=== PATIENT | female | born 1975 | race American Indian/Alaskan Native ===

== ENCOUNTER 2021-12-13 14:40 | Inpatient (IN) | payer SELFPAY ==
[2021-12-13 18:08] LABS: Calcium 9.3 mg/dL (8.4-10.2)
--- NOTE | 2021-12-13 18:08 | XRay Report ---
CHEST 2 VIEWS INDICATION: sob. COMPARISON: 02/13/2011. FINDINGS: Support devices: None. Heart: Borderline heart size. Lungs/Pleura: No acute air space or interstitial disease. No significant pleural effusion. IMPRESSION: No acute findings. Signer Name: Tien Chapin MD Signed: 12/13/2021 6:04 PM Workstation Name: [email or web address]
[2021-12-13 18:11] LABS: Hematocrit 33.4 % (30.3-42.9); Hemoglobin 10.2 gm/dl (10.1-14.3); Mean Corpuscular HGB Conc 30 % (30-34); Mean Corpuscular Volume 71 fl (79-97); Platelet Count 292 K/mm3 (140-440); Red Blood Count 4.69 M/mm3 (3.65-5.03); Red Cell Distribution Width 17.3 % (13.2-15.2)
[2021-12-13 18:58] LABS: Chol/HDL Ratio 3.48 %
[2021-12-13 19:52] LABS: Anisocytosis 2+; Basophils % (Manual) 0 % (0.0-1.8); Eosinophils % (Manual) 0 % (0.0-4.3); Hypochromasia 2+; Platelet Estimate Consistent w Auto; Total Cells Counted 100
--- NOTE | 2021-12-14 11:44 | Emergency Department Report ---
ED Shortness of Breath HPI - General Chief Complaint: Dyspnea/Respdistress Stated Complaint: ABDELRAHMAN Time Seen by Provider: 12/14/21 11:08 Source: patient, EMS Mode of arrival: Stretcher Limitations: No Limitations - History of Present Illness Initial Comments: Patient is a 46-year-old female with history of CHF, borderline diabetes and hypertension who presented yesterday with complaint of shortness of breath. States she waited in the waiting room for several hours. Symptoms improved while waiting. States this morning her symptoms are currently resolved. Labs drawn yesterday reviewed and reveal elevated troponin x2. - Related Data Allergies Allergy/AdvReac Type Severity Reaction Status Date / Time cephalexin [From Keflex] AdvReac Unknown Verified 12/13/21 14:45 Penicillins AdvReac Unknown Verified 12/13/21 14:45 ED Review of Systems ROS: Stated complaint: ABDELRAHMAN Other details as noted in HPI Constitutional: denies: chills, fever Respiratory: shortness of breath Cardiovascular: denies: chest pain, palpitations Gastrointestinal: denies: abdominal pain, nausea, diarrhea Genitourinary: denies: urgency, dysuria, discharge Musculoskeletal: denies: back pain, joint swelling, arthralgia Skin: denies: rash, lesions Neurological: denies: headache, weakness, paresthesias Psychiatric: denies: anxiety, depression ED Past Medical Hx - Past Medical History Previous Medical History?: Yes Hx Hypertension: Yes Hx Congestive Heart Failure: Yes Hx Diabetes: Yes Hx Arthritis: Yes Hx Asthma: Yes Additional medical history: thyroid - Surgical History Past Surgical History?: Yes Additional Surgical History: tubiligation 2004. thyroidectomy - Social History Smoking Status: Current Every Day Smoker Substance Use Type: None ED Physical Exam - General Limitations: No Limitations General appearance: alert, in no apparent distress - Head Head exam: Present: atraumatic, normocephalic - Respiratory Respiratory exam: Present: normal lung sounds bilaterally. Absent: respiratory distress - Cardiovascular Cardiovascular Exam: Present: regular rate, normal rhythm, normal heart sounds - GI/Abdominal GI/Abdominal exam: Present: soft. Absent: distended, tenderness - Rectal Rectal exam: Present: deferred - Neurological Exam Neurological exam: Present: alert, oriented X3 - Psychiatric Psychiatric exam: Present: normal affect, normal mood - Skin Skin exam: Present: warm, dry, intact, normal color ED Course Vital Signs 12/13/21 12/14/21 12/14/21 14:41 10:59 11:00 Temperature 100.2 F H Pulse Rate 99 H 82 82 Respiratory 18 16 21 Rate Blood Pressure 178/103 Blood Pressure 145/90 [Left] O2 Sat by Pulse 97 99 100 Oximetry 12/14/21 12/14/21 12/14/21 11:02 11:06 11:15 Temperature 97.9 F Pulse Rate 79 81 81 Respiratory 20 17 Rate Blood Pressure 178/106 178/106 Blood Pressure [Left] O2 Sat by Pulse 98 100 Oximetry 12/14/21 12/14/21 12/14/21 11:31 11:38 11:45 Temperature Pulse Rate 81 90 Respiratory 18 18 18 Rate Blood Pressure 162/86 162/86 Blood Pressure [Left] O2 Sat by Pulse 100 99 100 Oximetry ED Medical Decision Making - Lab Data Result diagrams: 12/13/21 17:24 12/13/21 17:24 - EKG Data -: EKG Interpreted by Co EKG shows normal: sinus rhythm, axis, intervals, QRS complexes Rate: normal - EKG Data 12/14/21 11:43 T wave inversion in aVL - Radiology Data Radiology results: report reviewed No acute findings on chest x-ray. - Medical Decision Making Cardiology consulted. We will plan for echocardiogram during admission along with stress test in the morning. Will admit to hospitalist. Critical care attestation.: If time is entered above; I have spent that time in minutes in the direct care of this critically ill patient, excluding procedure time. ED Disposition Clinical Impression: Elevated troponin Disposition: ADMITTED INPATIENT Is pt being admited?: Yes Condition: Stable
[2021-12-14] MEDS: METOPROLOL TARTRATE 50 MG TAB PO SCH ×2 (13:08→21:30)
[2021-12-14] MEDS: FUROSEMIDE 40 MG/4 ML INJ IV SCH ×2 (13:08→21:30)
[2021-12-14] MEDS: ASPIRIN 81 MG TAB CHEW PO SCH (13:08)
[2021-12-14] MEDS: LISINOPRIL 20 MG TAB PO SCH (13:09)
--- NOTE | 2021-12-14 13:42 | Consultation ---
History of Present Illness Consult date: 12/14/21 Requesting physician: MARIETTA KNOX Consult reason: elevated troponin History of present illness: Patient is a 46-year-old female with a past medical history of CHF, hypertension, diabetes, 20-year smoker who patient reports stopped 1 month ago, PTSD, and MDD who came to the ED yesterday due to a complaint of chills, dizziness, chest pressure which started while yesterday at work. Patient reports that she has been waiting in the ED for 21 hours. At time of interview patient reported that most of her symptoms have resolved. She states she still has some chest tightness that is worsened with deep breathing and palpation. Patient also reports that over the last several weeks she has had bilateral lower extremity edema, slight dyspnea on exertion, and some orthopnea. Of note patient reports that she was diagnosed with a history of CHF at least 2 years ago however states she never followed up with anybody and states she has an appointment at [facility] in December. Patient also reports that she has not been on any cardiac meds and states that she was just recently started on lisinopril but is unaware of her dosage. In the ED patient was found to have elevated BNP, elevated troponin, and BP 178/106. Currently patient is denying squeezing or crushing chest pain, nausea, vomiting, diaphoresis. Patient is previously unknown to our practice. Patient reports that he was planning to see [facility] cardiology in December. Cardiology is consulted for elevated troponins. Past History Past Medical History: diabetes, heart failure, hypertension, hyperlipidemia Past Surgical History: thyroidectomy, Other (Tubal ligation) Social history: smoking (20-year smoker patient reports stopping 1 month) Family history: diabetes Medications and Allergies Allergies Allergy/AdvReac Type Severity Reaction Status Date / Time cephalexin [From Keflex] AdvReac Unknown Verified 12/13/21 14:45 Penicillins AdvReac Unknown Verified 12/13/21 14:45 Active Meds: Active Medications Aspirin (Aspirin 81 Mg Tab Chew) 81 mg PO DAILY [facility] Last Admin: 12/14/21 13:08 Dose: 81 mg Atorvastatin Calcium (Atorvastatin 40 Mg Tab) 40 mg PO QHS [facility] Furosemide (Furosemide 40 Mg/4 Ml Inj) 40 mg IV BID [facility]O Stop: 12/14/21 22:01 Last Admin: 12/14/21 13:08 Dose: 40 mg Lisinopril (Lisinopril 20 Mg Tab) 40 mg PO DAILY [facility] Last Admin: 12/14/21 13:09 Dose: 40 mg Metoprolol Tartrate (Metoprolol Tartrate 50 Mg Tab) 25 mg PO BID [facility] Last Admin: 12/14/21 13:08 Dose: 25 mg Review of Systems Constitutional: chills, no weight loss, no weight gain Cardiovascular: orthopnea, edema, lightheadedness, shortness of breath, dyspnea on exertion Respiratory: shortness of breath, dyspnea on exertion Gastrointestinal: no abdominal pain, no nausea, no vomiting Musculoskeletal: no neck stiffness, no neck pain Integumentary: no rash, no pruritis, no redness Neurological: no head injury, no transient paralysis Psychiatric: no anxiety, no memory loss Endocrine: no cold intolerance, no heat intolerance Hematologic/Lymphatic: no easy bruising, no easy bleeding Physical Examination Vital Signs Temp Pulse Resp BP Pulse Ox 100.2 F H 99 H 18 145/90 97 12/13/21 14:41 12/13/21 14:41 12/13/21 14:41 12/13/21 14:41 12/13/21 14:41 General appearance: no acute distress Cardiac: Positive: Reg Rate and Rhythm Lungs: Positive: Rales Neuro: Positive: Grossly Intact Abdomen: Positive: Soft, Active Bowel Sounds Skin: Negative: Rash, Suspicious Lesions, Ulceration Extremities: Present: upper extr. pulses, edema Results 12/13/21 17:24 12/13/21 17:24 Cardiac Enzymes 12/13/21 Range/Units 17:24 AST 29 (5-40) units/L Lipids 12/13/21 Range/Units 17:24 Triglycerides 98 (2-149) mg/dL Cholesterol 202 H (50-199) mg/dL HDL Cholesterol 58 (40-59) mg/dL Cholesterol/HDL Ratio 3.48 % CBC 12/13/21 Range/Units 17:24 WBC 6.9 (4.5-11.0) K/mm3 RBC 4.69 (3.65-5.03) M/mm3 Hgb 10.2 (10.1-14.3) gm/dl Hct 33.4 (30.3-42.9) % Plt Count 292 (140-440) K/mm3 Comprehensive Metabolic Panel 12/13/21 Range/Units 17:24 Sodium 142 (137-145) mmol/L Potassium 3.7 (3.6-5.0) mmol/L Chloride 102.7 (98-107) mmol/L Carbon Dioxide 26 (22-30) mmol/L BUN 17 (7-17) mg/dL Creatinine 1.3 H (0.6-1.2) mg/dL Glucose 131 H (65-100) mg/dL Calcium 9.3 (8.4-10.2) mg/dL AST 29 (5-40) units/L ALT 20 (7-56) units/L Alkaline Phosphatase 112 (35-129) units/L Total Protein 7.8 (6.3-8.2) g/dL Albumin 4.0 (3.9-5) g/dL - Imaging and Cardiology Echo: pending EKG interpretations - Telemetry EKG Rhythm: Sinus Rhythm - EKG Sinus rhythms and dysrhythmias: sinus rhythm Assessment and Plan Patient is a 46-year-old female with a past medical history of CHF, hypertension, diabetes, PTSD, and MDD who came to the ED yesterday due to a complaint of chills, dizziness, chest pressure which started while yesterday at work. NSTEMI suspect type II Acute on chronic heart failure Hypertensive urgency Diabetes PTSD MDD next obesity Hyperlipidemia Plan: EKG shows sinus rhythm 80 with nonspecific T. No acute ischemic changes. Patient currently chest pain-free. Troponins noted to be elevated suspect NSTEMI type II in setting of hypertensive urgency and acute on chronic heart failure. Repeat troponin pending BNP noted to be elevated, patient has bilateral lower extremity edema, and patient reports dyspnea on exertion and orthopnea. Will diurese with Lasix 40 mg IV x2 doses Strict I&O's, daily weights, repeat BMP in the a.m., close monitoring of renal index as patient's creatinine is borderline If creatinine continues to rise primary team may wish to consult nephrology Echo pending Will plan for stress test in the AM. N.p.o. after midnight Will initiate aspirin, atorvastatin 40 mg p.o. nightly, metoprolol 25 mg p.o. twice daily, lisinopril 40 mg p.o. daily Consulted nutrition for heart failure education Plan of care discussed with patient who verbalized understanding and acknowl edgment Patient seen in conjunction with Dr. Hayward who agrees with this plan of care - Patient Problems (1) Type 2 myocardial infarction Current Visit: Yes Status: Acute (2) Hypertension Current Visit: Yes Status: Acute (3) CHF (congestive heart failure) Current Visit: Yes Status: Acute (4) Diabetes Current Visit: Yes Status: Acute (5) Hyperlipidemia Current Visit: Yes Status: Acute (6) Obesity Current Visit: Yes Status: Acute
--- NOTE | 2021-12-14 14:49 | History and Physical Report ---
History of Present Illness Chief complaint: I am short of breath History of present illness: 46 YO Female with HTN, DM, CHF, Obesity Hypoventilation Syndrome, Metabolic Syndrome, Nicotine Dependence, PTSD, MDD presents to ED for evaluation. Patient reports "I am short of breath". Patient states that she has been allegra rtness of breath over the past 1 day with worsening symptoms over the past 1 hour prior to presentation. Patient acknowledges decreased exercise tolerance, dyspnea on exertion, dyspnea at rest, orthopnea, paroxysmal nocturnal dyspnea, and 7 pound weight gain over the past 1 week. EMS was notified and upon arrival the patient was found to be in distress and subsequently transported to [facility] for further care and evaluation of the aforementioned symptoms. The patient was seen and evaluated in the emergency department. All lab and imaging studies reviewed. Patient found to have clinical symptoms consistent with CHF decompensation, as well as NSTEMI, volume depletion. Patient admitted to [facility] and initiated on ACS protocol. Cardiology team consulted in ED. Patient denies fever, chills, chest pain, palpitation, adductive cough, skin rash and recent contact, known exposure to COVID-19. No prior admission for review. No medication listed at time of admission for reconciliation. Advanced care planning conducted in ED. Past History Past Medical History: diabetes, heart failure, hypertension, hyperlipidemia, other (See HPI) Past Surgical History: thyroidectomy, Other (Tubal ligation) Social history: smoking (20-year smoker patient reports stopping 1 month) Family history: diabetes Medications and Allergies Allergies Allergy/AdvReac Type Severity Reaction Status Date / Time cephalexin [From Keflex] AdvReac Unknown Verified 12/13/21 14:45 Penicillins AdvReac Unknown Verified 12/13/21 14:45 Active Meds: Active Medications Aspirin (Aspirin 81 Mg Tab Chew) 81 mg PO DAILY [facility] Last Admin: 12/14/21 13:08 Dose: 81 mg Atorvastatin Calcium (Atorvastatin 40 Mg Tab) 40 mg PO QHS [facility] Furosemide (Furosemide 40 Mg/4 Ml Inj) 40 mg IV BID [facility] Stop: 12/14/21 22:01 Last Admin: 12/14/21 13:08 Dose: 40 mg Lisinopril (Lisinopril 20 Mg Tab) 40 mg PO DAILY [facility] Last Admin: 12/14/21 13:09 Dose: 40 mg Metoprolol Tartrate (Metoprolol Tartrate 50 Mg Tab) 25 mg PO BID [facility] Last Admin: 12/14/21 13:08 Dose: 25 mg Review of Systems Constitutional: weight gain, no chills, no sweats, no anorexia, no fatigue Ears, nose, mouth and throat: no ear pain, no ear discharge, no decreased hearing, no nasal congestion, no nasal discharge, no sinus pressure Breasts: no change in shape, no swelling, no mass Cardiovascular: orthopnea, shortness of breath, dyspnea on exertion, paroxysmal nocturnal dyspnea, decreased exercise tolerance, no chest pain Respiratory: no cough, no cough with sputum, no excessive sputum, no shortness of breath Gastrointestinal: no nausea, no diarrhea, no constipation Genitourinary Female: no pelvic pain, no flank pain, no dysuria, no urinary frequency, no urgency Rectal: no pain, no incontinence, no bleeding Musculoskeletal: no neck stiffness, no shooting arm pain, no arm numbness/tingling, no low back pain, no shooting leg pain, no leg numbness/tingling Integumentary: no rash, no pruritis, no redness, no sores, no jaundice Neurological: no head injury, no paralysis, no parathesias, no tingling, no syncope, no tremors Psychiatric: no anxiety, no memory loss, no change in sleep habits, no insomnia, no change in appetite, no suicidal ideation, no disorientation Endocrine: no cold intolerance, no polyphagia, no excessive thirst, no polydipsia, no polyuria, no excessive sweating Hematologic/Lymphatic: no easy bruising, no easy bleeding Allergic/Immunologic: no urticaria, no allergic rhinitis Exam - Constitutional Vitals: Temp Pulse Resp BP Pulse Ox 97.9 F 82 12 164/85 97 12/14/21 11:02 12/14/21 13:31 12/14/21 13:31 12/14/21 13:31 12/14/21 13:31 General appearance: Present: mild distress, obese - EENT Eyes: Present: PERRL ENT: hearing intact, clear oral mucosa - Neck Neck: Present: supple, normal ROM - Respiratory Respiratory effort: normal Respiratory: bilateral: CTA - Cardiovascular Heart Sounds: Present: S1 & S2. Absent: rub, click - Extremities Extremities: pulses symmetrical, No edema Peripheral Pulses: within normal limits - Abdominal General gastrointestinal: Present: soft, non-tender, non-distended, normal bowel sounds Female genitourinary: Present: normal - Integumentary Integumentary: Present: clear, warm, dry - Musculoskeletal Musculoskeletal: gait normal, strength equal bilaterally - Psychiatric Psychiatric: appropriate mood/affect, intact judgment & insight - Neurologic Neurologic: CNII-XII intact, moves all extremities HEART Score - HEART Score Troponin: Troponin T 0.118 ng/mL (0.00-0.029) H* D 12/13/21 19:05 Results - Labs CBC & Chem 7: 12/13/21 17:24 12/13/21 17:24 Labs: Abnormal lab results 12/13/21 12/13/21 12/13/21 Range/Units 17:24 17:24 17:24 MCV 71 L (79-97) fl MCH 22 L (28-32) pg RDW 17.3 H (13.2-15.2) % Seg Neuts % (Manual) 84.0 H (40.0-70.0) % Lymphocytes % (Manual) 9.0 L (13.4-35.0) % Lymphocytes # (Manual) 0.6 L (1.2-5.4) K/mm3 Creatinine 1.3 H (0.6-1.2) mg/dL Glucose 131 H (65-100) mg/dL Troponin T 0.089 H (0.00-0.029) ng/mL NT-Pro-B Natriuret Pep 6901 H (0-450) pg/mL Cholesterol 202 H (50-199) mg/dL LDL Cholesterol Direct 143 H (50-130) mg/dL 12/13/21 Range/Units 19:05 MCV (79-97) fl MCH (28-32) pg RDW (13.2-15.2) % Seg Neuts % (Manual) (40.0-70.0) % Lymphocytes % (Manual) (13.4-35.0) % Lymphocytes # (Manual) (1.2-5.4) K/mm3 Creatinine (0.6-1.2) mg/dL Glucose (65-100) mg/dL Troponin T 0.118 H* D (0.00-0.029) ng/mL NT-Pro-B Natriuret Pep (0-450) pg/mL Cholesterol (50-199) mg/dL LDL Cholesterol Direct (50-130) mg/dL Assessment and Plan - Patient Problems (1) CHF (congestive heart failure) Current Visit: Yes Status: Acute Qualifiers: Heart failure chronicity: acute Plan to address problem: Strict I's/O, monitor urine output every shift, daily weight, afterload reduc tion, blood pressure control, echocardiogram ordered and pending at time of admission, thyroid panel, magnesium level, cardiology team consulted. (2) Type 2 myocardial infarction Current Visit: Yes Status: Acute Plan to address problem: ACS protocol: Serial cardiac enzymes, EKG, telemetry monitoring, cardiology team consulted, further care and evaluation as per cardiology team. Morphine, supplemental oxygen, nitro, aspirin. (3) Metabolic syndrome Current Visit: Yes Status: Acute Plan to address problem: Balanced diet, increase physical activity discharge. Balanced diet, weight reduction. (4) Volume depletion Current Visit: Yes Status: Acute Plan to address problem: BMP, IV fluid resuscitation therapy, repeat BMP in a.m. to monitor serum creatinine as well as GFR. (5) Nicotine dependence Current Visit: Yes Status: Acute Qualifiers: Nicotine product type: cigarettes Substance use status: in withdrawal Qualified Code(s): F17.213 - Nicotine dependence, cigarettes, with withdrawal Plan to address problem: Smoking cessation counseling, supportive care, behavior change counseled, +15 minutes. (6) Hyperlipidemia Current Visit: Yes Status: Acute Qualifiers: Hyperlipidemia type: mixed hyperlipidemia Qualified Code(s): E78.2 - Mixed hyperlipidemia Plan to address problem: Lipid panel, statin therapy as clinically indicated. (7) Hypertension Current Visit: Yes Status: Acute Qualifiers: Hypertension type: primary hypertension Qualified Code(s): I10 - Essential (primary) hypertension Plan to address problem: Monitor blood pressure every shift, continue medical management, (8) DVT prophylaxis Current Visit: Yes Status: Acute Plan to address problem: SCD to bilateral lower extremities while in bed (9) Advance care planning Current Visit: Yes Status: Acute Plan to address problem: Disease education conducted, care plan discussed, diagnoses discussed, prognosis discussed, patient is full code. Patient knowledges understanding and agreement with care plan, +30 minutes. (10) Preventative health care Current Visit: Yes Status: Acute Plan to address problem: Patient counseled regarding weight reduction, balanced diet, increase physical activity discharge, outpatient pulmonary follow-up for sleep study. Outpatient follow-up with primary care physician for all age and risk factor appropriate screening test. +30 minutes.
[2021-12-14] MEDS ORDERED: NITROGLYCERIN 0.4 MG TAB SUBL SL PRN (15:01)
[2021-12-14] MEDS ORDERED: ACETAMINOPHEN 325 MG TAB PO PRN (15:01)
[2021-12-14] MEDS ORDERED: oxyCODONE /ACETAMINOPHEN 5-325MG TAB PO PRN (15:01)
[2021-12-14] MEDS ORDERED: ALBUTEROL 2.5 MG/3 ML NEBU IH PRN (15:01)
[2021-12-14] MEDS ORDERED: MORPHINE 4 MG/1 ML INJ IV PRN (15:01)
[2021-12-14] MEDS ORDERED: ONDANSETRON 4 MG/2 ML INJ IV PRN (15:01)
[2021-12-14 17:06] LABS: Mean Corpuscular HGB Conc 30 % (30-34); Mean Corpuscular Volume 72 fl (79-97); Platelet Count 272 K/mm3 (140-440); Red Blood Count 4.74 M/mm3 (3.65-5.03); Red Cell Distribution Width 17.6 % (13.2-15.2)
[2021-12-14 17:18] LABS: Hematocrit 33.9 % (30.3-42.9); Hemoglobin 10.2 gm/dl (10.1-14.3)
[2021-12-14 19:17] LABS: Basophils % (Manual) 0 % (0.0-1.8); Eosinophils % (Manual) 0 % (0.0-4.3); Total Cells Counted 100
[2021-12-14 19:18] LABS: Anisocytosis 1+; Hypochromasia 2+; Platelet Estimate Consistent w Auto
[2021-12-15 08:11] LABS: BUN/Creatinine Ratio 17; Blood Urea Nitrogen 19 mg/dL (7-17); Calcium 8.6 mg/dL (8.4-10.2); Hemolysis Index 14
[2021-12-15 08:37] LABS: Red Blood Count 4.67 M/mm3 (3.65-5.03)
[2021-12-15 08:38] LABS: Hemoglobin 10.1 gm/dl (10.1-14.3); Mean Corpuscular HGB Conc 31 % (30-34); Mean Corpuscular Volume 71 fl (79-97); Mean Platelet Volume 10.3 fl (6-12); Platelet Count 283 K/mm3 (140-440); Red Cell Distribution Width 17.3 % (13.2-15.2)
[2021-12-15] MEDS ORDERED: REGADENOSON 0.4 MG/5 ML INJ IV ONE (10:00)
--- NOTE | 2021-12-15 10:58 | Progress Note ---
Assessment and Plan Patient is a 46-year-old female with a past medical history of CHF, hypertension, diabetes, PTSD, and MDD who came to the ED yesterday due to a complaint of chills, dizziness, chest pressure which started while yesterday at work. NSTEMI suspect type II Acute on chronic heart failure Hypertensive urgency Diabetes PTSD MDD next obesity Hyperlipidemia Echo 12/14/2021-EF 45 to 50%. Mild concentric LVH. Transmitral Doppler pattern suggests impaired laxation. Right ventricle is dilated. Right ventricle is hypokinetic. Trace tricuspid regurgitation Lexiscan MPI stress test 12/15/2021-negative stress test. Test showed no evidence of ischemia. Patient remained in sinus rhythm with no ST changes Plan: EKG shows sinus rhythm 80 with nonspecific T. No acute ischemic changes. Patient currently chest pain-free. Troponins noted to be elevated suspect NSTEMI type II in setting of hypertensive urgency and acute on chronic heart failure. Repeat troponin downtrending Continue aspirin, atorvastatin 40 mg p.o. nightly,, lisinopril 40 mg p.o. daily Patient remain hypertensive increase to metoprolol 50 mg p.o. twice daily Initiate lasix 20mg PO QD Plan of care discussed with patient who verbalized understanding and acknowledgment Cardiac status stable for discharge Patient should follow up with their [facility] or patient may follow up with Dr. Hayward, [facility] in 1-2 weeks after discharge. Patient seen in conjunction with Dr. Hayward who agrees with this plan of care - Patient Problems (1) Type 2 myocardial infarction Current Visit: Yes Status: Acute (2) Hypertension Current Visit: Yes Status: Acute Qualifiers: Hypertension type: primary hypertension Qualified Code(s): I10 - Essential (primary) hypertension (3) CHF (congestive heart failure) Current Visit: Yes Status: Acute Qualifiers: Heart failure chronicity: acute (4) Diabetes Current Visit: Yes Status: Acute (5) Hyperlipidemia Current Visit: Yes Status: Acute Qualifiers: Hyperlipidemia type: mixed hyperlipidemia Qualified Code(s): E78.2 - Mixed hyperlipidemia (6) Obesity Current Visit: Yes Status: Acute Subjective Date of service: 12/15/21 Principal diagnosis: Hypertensive urgency, HFpEF, NSTEMI type II Interval history: Patient for stress test this a.m. Patient reports improvement in her symptoms Signs 70s to 80s on monitor Objective Vital Signs Temp Pulse Resp BP BP Pulse Ox 12/15/21 09:58 140/79 12/15/21 09:57 142/79 12/15/21 09:56 139/83 12/15/21 09:55 133/82 12/15/21 08:19 147/85 12/15/21 07:35 98.3 F 78 18 134/68 97 12/15/21 04:00 78 12/15/21 01:33 98.6 F 76 18 143/75 100 12/14/21 22:00 99 12/14/21 21:30 84 164/85 12/14/21 20:31 82 12/14/21 19:12 98.4 F 81 18 146/82 98 12/14/21 18:42 97.7 F 79 18 153/80 100 12/14/21 18:10 164/85 98 12/14/21 16:41 17 164/85 98 12/14/21 16:31 13 164/85 99 12/14/21 16:21 18 164/85 98 12/14/21 16:19 14 164/85 99 12/14/21 16:15 84 16 164/85 100 12/14/21 16:01 82 19 164/85 93 12/14/21 15:45 84 21 164/85 97 12/14/21 15:31 84 14 164/85 95 12/14/21 15:29 83 14 164/85 100 12/14/21 14:30 85 19 164/85 98 12/14/21 14:15 82 18 164/85 97 12/14/21 14:07 164/85 99 12/14/21 13:46 85 12 184/88 97 12/14/21 13:31 82 12 164/85 97 12/14/21 13:15 85 12 173/89 100 12/14/21 13:09 88 173/89 12/14/21 13:08 85 173/89 12/14/21 13:01 92 H 17 169/91 99 12/14/21 12:45 86 16 165/98 98 12/14/21 12:31 82 12 165/98 98 12/14/21 12:15 86 17 171/101 97 12/14/21 11:45 90 18 162/86 100 12/14/21 11:38 18 99 12/14/21 11:31 81 18 162/86 100 12/14/21 11:15 81 17 178/106 100 12/14/21 11:06 81 12/14/21 11:02 97.9 F 79 20 178/106 98 12/14/21 11:00 82 21 178/103 100 12/14/21 10:59 82 16 99 - Physical Examination General: No Apparent Distress Neck: Positive: trachea midline Cardiac: Positive: Reg Rate and Rhythm Lungs: Positive: Normal Breath Sounds Neuro: Positive: Grossly Intact Abdomen: Positive: Soft, Active Bowel Sounds Skin: Negative: Rash, Suspicious Lesions, Ulceration Extremities: Present: upper extr. pulses, edema - Labs and Meds CBC 12/14/21 12/15/21 Range/Units 15:53 07:07 WBC 5.0 5.5 (4.5-11.0) K/mm3 RBC 4.74 4.67 (3.65-5.03) M/mm3 Hgb 10.2 10.1 (10.1-14.3) gm/dl Hct 33.9 33.0 (30.3-42.9) % Plt Count 272 283 (140-440) K/mm3 Comprehensive Metabolic Panel 12/15/21 Range/Units 07:07 Sodium 143 (137-145) mmol/L Potassium 3.7 (3.6-5.0) mmol/L Chloride 104.2 (98-107) mmol/L Carbon Dioxide 26 (22-30) mmol/L BUN 19 H (7-17) mg/dL Creatinine 1.1 (0.6-1.2) mg/dL Glucose 133 H (65-100) mg/dL Calcium 8.6 (8.4-10.2) mg/dL - Imaging and Cardiology Echo: report reviewed - Telemetry EKG Rhythm: Sinus Rhythm - EKG Sinus rhythms and dysrhythmias: sinus rhythm
[2021-12-15] MEDS ORDERED: METOPROLOL TARTRATE 50 MG TAB PO SCH (11:00)
[2021-12-15 11:10] LABS: Basophils % (Manual) 0 % (0.0-1.8); Total Cells Counted 100
[2021-12-15 11:12] LABS: Anisocytosis 2+; Poikilocytosis Few
[2021-12-15 11:13] LABS: Hypochromasia 2+; Large Platelets Rare; Ovalocytes Rare; Platelet Estimate Consistent w Auto; Spherocytes Rare; Stomatocytes Rare
--- NOTE | 2021-12-15 11:50 | Nuclear Medicine Report ---
APPROVED REPORT Exam: Nuclear Stress Test Indication: [facility] pain [facility] Ht: 5 ft 11 in Wt: 238 lbs BSA: 2.27 m2 HR: 78 bpmBP: 147/85 mmHgBMI: 33.19 Rhythm: SINUS RHYTHM Stress Test Details Stress Test: Pharmacologic stress testing performed using 0.4 mg of regadenoson per 5 mL given IV over 10 seconds. Reason for pharmacologic stress test: physical limitation. HR Resting HR: 78 bpm Max HR Achieved: 102 bpm Max Heart Rate (APMHR): 175 bpm Target HR (85% APMHR): 148 bpm % of APMHR: 58 Recovery HR: 97 bpm HR response to stress: Normal HR response to stress BP Resting BP: 147/85 mmHg Max BP: 159/81 mmHg Recovery BP: 133/82 mmHg BP response to stress: Normal blood pressure response to stress. ECG Resting ECG: Sinus Rhythm,nonspecific T wave changes noted. Stress ECG: SINUS RHYTHM ST Change: None Arrhythmia: None Recovery ECG: Sinus Rhythm Recovery ST Change: None Recovery Arrhythmia: VPC Clinical Reason for Termination: Completed protocol Stress Symptoms: None Stress ECG Conclusion Patient remained in S.R with no ST changes post vasodilation.Rare PVC's noted during recovery. NM EXAM: Myocardial Perfusion REST/STRESS Imaging Protocol: Rest Tc-99m/Stress Tc-99m 1 day Resting Data Rest SPECT myocardial perfusion imaging was performed in supine position 45 minutes following the intravenous injection of 10 mCi of Tc-99m Myoview. Time of rest injection: Date: 12/15/2021 Pharmacologic Stress Pharmacologic stress test was performed by injecting Regadenoson 0.4 mg IV push followed by the intravenous injection of 28 mCi of Tc-99m Myoview. Time of stress injection: 10 Date: 12/15/2021 Gated Stress SPECT was performed 30 minutes after stress injection. The images were gated to evaluate regional wall motion and calculate left ventricular ejection fraction. Study Quality Study: excellent Lung Uptake: Normal Study Data TID = 1.07. Perfusion Wall Motion Gating study post vasodilation showed LVEF 38%,mildly dilated LV.Gating artifact noted,involving particulrly inferior wall. Nuclear Conclusion ECG Findings: negative for ischemia Clinical Findings: negative for ischemia Nuclear Findings: negative for ischemia Exercise Capacity: not assessed Left Ventricular Function: abnormal Risk Study: low The rest and stress images show normal perfusion. There is a small area of mildly reduced uptake in the basal and mid segment of the inferior wall which is seen on the stress images and improves on the resting images.This was felt to be artifacual. Gating study post vasodilation showed LVEF 38%,mildly dilated LV.Gating artifact noted,involving particulrly inferior wall. Conclusion Patient remained in S.R with no ST changes post vasodilation.Rare PVC's noted during recovery.
[2021-12-15 12:07] VITALS: BP 137/65
--- NOTE | 2021-12-15 12:12 | Discharge Summary ---
Providers - Providers Date of Admission: 12/14/21 15:02 Date of discharge: 12/15/21 Attending physician: MAGUE STARR MD 12/14/21 Consult to Cardiac Rehabilitation [CONS] Routine Reason For Exam: Phase 1 12/14/21 13:26 Consult to Dietitian/Nutrition [CONS] Routine Physician Instructions: Reason For Exam: Reason for Consult: Diet education 12/14/21 13:45 Consult to Physician [CONS] Routine Comment: Consulting Provider: ANNA ALVARENGA Physician Instructions: Reason For Exam: elevated troponins Primary care physician: ACADEMIC MANAGER Hospitalization Reason for admission: CHF exacerbation, NSTEMI Condition: Stable Hospital course: Patient is a 46-year-old female with history of hypertension, CHF and obesity who presented with shortness of breath. After lab draw she was found to have elevated troponin. She was admitted for CHF exacerbation. Per patient she was lost to follow-up after initial diagnosis of CHF but has started following with primary care at [facility] and will be following with Cardiology there in the future. Echocardiogram revealed LVEF of 45 to 50%. Thallium stress test was negative for ischemia. Patient was counseled and discharged home once stable. Disposition: HOME / SELF CARE / HOMELESS Final Discharge Diagnosis (Prints w/discharge instructions): Acute on chronic systolic heart failure. NSTEMI type II. Hypertensive urgency. Wwj-[id number]-[id number] type 2 diabetes. PTSD. Obesity. Hyperlipidemia. tobacco dependence Time spent for discharge: 40 minutes Core Measure Documentation - Palliative Care Palliative Care/ Comfort Measures: Not Applicable - Core Measures Any of the following diagnoses?: heart failure - Heart Failure Discharge Requirements EMELI/ARB for LVSD if EF <40%: Yes Beta sabiha at discharge: Yes Exam - Physical Exam Narrative exam: GENERAL: Well-developed well-nourished. In no acute distress. HEENT: Normocephalic. Atraumatic. NECK: Supple. CHEST/LUNGS: CTAB on room air HEART/CARDIOVASCULAR: RRR. No murmur, rubs or gallops appreciated. ABDOMEN: +BS. NT/ND. SKIN: No rashes noted. NEURO: No focal motor deficit. Follows all commands. MUSCULOSKELETAL: No joint effusion EXTREMITIES: No cyanosis, clubbing or edema. PSYCH: Cooperative. - Constitutional Vitals: Temp Pulse Resp BP Pulse Ox 98.5 F 81 18 137/65 100 12/15/21 11:58 12/15/21 11:58 12/15/21 11:58 12/15/21 11:58 12/15/21 11:58 Plan Care Plan Goals: Please make sure to follow-up with your primary care provider and to establish care with cardiology at [facility]. Please take all medications daily as they are prescribed to you. Your stress test was negative. Follow up with: PRIMARY CARE, [Primary Care Provider] - 7 Days Prescriptions: carvediloL [Coreg] 3.125 mg PO BID 30 Days #60 tab Aspirin EC [Halfprin EC] 81 mg PO QDAY 30 Days #30 tab Furosemide [Lasix TAB] 20 mg PO QDAY 30 Days #30 tablet AtorvaSTATin [Lipitor] 40 mg PO QDAY 30 Days #30 tab lisinopriL [Zestril TAB] 40 mg PO QDAY 30 Days #30 tab
[2021-12-15] MEDS: ASPIRIN 81 MG TAB CHEW PO SCH (12:14)
[2021-12-15] MEDS: LISINOPRIL 20 MG TAB PO SCH (12:15)
[2021-12-15] MEDS: FUROSEMIDE 20 MG TAB PO SCH ×2 (12:16→15:38)
[2021-12-15] MEDS: METOPROLOL TARTRATE 50 MG TAB PO SCH (12:24)
--- NOTE | 2021-12-15 13:44 | Electrocardiograph Report ---
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
--- NOTE | 2021-12-15 13:53 | Electrocardiograph Report ---
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
== END 2021-12-15 17:12 | disposition home or self-care (01) | DRG 280 ==
LOC: ED 14:40 → 4A 12-14 15:02
PROVIDERS: ADMIT Internal Medicine; ATTEND Student in an Organized Health Care Education/Training Program
DX: I11.0 Hypertensive heart disease with heart failure (principal); I21.A1 Myocardial infarction type 2; I50.23 Acute on chronic systolic (congestive) heart failure; E66.2 Morbid (severe) obesity with alveolar hypoventilation; E11.9 Type 2 diabetes mellitus without complications; E88.81 Metabolic syndrome and other insulin resistance; F17.200 Nicotine dependence, unspecified, uncomplicated; M19.90 Unspecified osteoarthritis, unspecified site; J45.909 Unspecified asthma, uncomplicated; F43.10 Post-traumatic stress disorder, unspecified; F32.9 Major depressive disorder, single episode, unspecified; I16.0 Hypertensive urgency; E86.9 Volume depletion, unspecified; E78.2 Mixed hyperlipidemia; Z98.51 Tubal ligation status; Z88.0 Allergy status to penicillin; Z83.3 Family history of diabetes mellitus; Z88.8 Allergy status to other drugs, medicaments and biological substances
CPT/HCPCS: 36415; 71046; 78452; 80048; 80053; 80061; 83880; 84484; 85007; 85025; 93005; 93017; 93306; G0378; A9502; C8929; J1940; J2785